=== PATIENT | female | born 1980 | race Two or more races ===

== ENCOUNTER 2016-10-22 09:05 | Emergency (ER) | payer MEDICAID ==
[2016-10-22 09:09] VITALS: BP 124/76; RESP 20; TEMP 97.7; O2SAT 98
--- NOTE | 2016-10-22 09:13 | EDPHY ---
H & P Stated Complaint: Alergic reaction since yesterday;hives and facial swelling - Personal History LMP (Females 10-55): Hysterectomy Current Tetanus Diphtheria and Acellular Pertussis (TDAP): Yes - Medical/Surgical History Other PMH: hypothyroid - Social History Smoking Status: Never smoked Constitutional: Initial Vital Signs Temperature (C) 36.5 C 10/22/16 09:05 Heart Rate 88 10/22/16 09:05 Respiratory Rate 20 10/22/16 09:05 Blood Pressure 124/76 H 10/22/16 09:05 O2 Sat (%) 98 10/22/16 09:05 O2 Delivery Mode Room Air Allergies/Adverse Reactions: diphenhydramine HCl [From Benadryl] Allergy (Intermediate, Verified 10/22/16 09: 05) palpitations Home Medications: Medication Instructions Recorded EPINEPHRINE [EPIPEN] 0.3 mg IM ONCE #2 syr 10/22/16 Famotidine [Pepcid 20 MG (OTC)] 20 mg PO DAILY #10 tab 10/22/16 Thyroid [Ambrose Thyroid 60 MG (*)] 60 mg PO DAILY10 10/22/16 predniSONE 40 mg PO DAILY #10 tab 10/22/16 Medical Decision Making ED Course/Re-evaluation: CHIEF COMPLAINT: Rash HISTORY OF PRESENT ILLNESS: This is a 36 y/o female with no known allergies complaining of a pruritic rash onset this morning upon waiting. She started Fluconazole 5 days ago for a yeast infection that appeared after treatment for an upper respiratory infection 2 weeks ago. She has never had a reaction to Fluconazole previously. This morning she woke with large urticaria to her forehead, neck, and elbows. She has associated itching sensation around her lips , but denies airway swelling or difficulty breathing. Her symptoms have improved since arrival in the ED. She gets palpitations with Benadryl, so she has not taken anything for her symptoms. REVIEW OF SYSTEMS: A 10 point review of systems was performed and is negative with the exception of the elements mentioned in the history of present illness. PHYSICAL EXAM: HR, BP, O2 Sat, RR. Temp noted General Appearance: Alert, well hydrated, appropriate, and non-toxic appearing. Head: Atraumatic without scalp tenderness or obvious injury Eyes: Pupils equal, round, reactive to light and accommodation, EOMI, no trauma , no injection. Ears: Clear bilaterally, no perforation, normal landmarks Nose: Atraumatic, no rhinorrhea, clear. Throat: There is no erythema or exudates, no lesions, normal tonsils, mucus membranes moist. No angioedema, uvula midline, no stridor. Neck: Supple, nontender, no lymphadenopathy. Respiratory: No retractions, no distress, no wheezes, and no accessory muscle use. Lungs are clear to auscultation bilaterally. Cardiovascular: Regular rate and rhythm, no murmurs, rubs, or gallops. Good capillary refill all extremities. Gastrointestinal: Abdomen is soft, nontender, non-distended, no masses, no rebound, no guarding, no peritoneal signs. Musculoskeletal: Normal active ROM of all extremities, atraumatic. Neurological: Alert, appropriate, and interactive. Nonfocal neuro exam. Skin: good turgor, no nodules on palpation. Pronounced urticaria to forehead, neck, and elbows. Past medical history: Denies Past surgical history: Hysterectomy Family history: noncontributory Social history: Lives in [place] DIFFERENTIAL DIAGNOSIS: The differential diagnosis included but was not limited to angioedema, anaphylaxis, anaphylactoid reaction, urticarial reaction , and other infectious causes for skin rash. MEDICAL DECISION MAKING: This is a healthy 36 y/o female who presents with pronounced urticaria to her forehead, neck, and elbows that appeared this morning. She is on her 5th day of fluconazole and has no history of prior reactions to this drug. Her breath sounds are clear and she has no evidence of respiratory distress on exam. It's possible this is a delayed reaction to her fluconazole, but it could be a reaction to a different antigen as well. Her treatment is somewhat complicated due to a history of palpitations with Benadryl use and her ongoing yeast infection. Due to this, we will treat her symptoms with 10mg PO dexamethasone instead of prednisone and 40mg PO Pepcid instead of Benadryl. She will be discharged with scripts for Pepcid, an EpiPen, and prednisone with specific instructions to only use the prednisone if her rash recurs. I gave strict return precautions and referred her to an rodding anode worker for follow up. She is comfortable with this plan. - Data Points Medications Given: Discontinued Medications Dexamethasone (Decadron Injection) 10 mg PO EDNOW ONE Stop: 10/22/16 09:22 Last Admin: 10/22/16 09:33 Dose: 10 mg Famotidine (Pepcid) 40 mg PO EDNOW ONE Stop: 10/22/16 09:22 Last Admin: 10/22/16 09:33 Dose: 40 mg Departure - Departure Disposition: Home, Routine, Self-Care Clinical Impression: Allergic reaction Qualifiers: Encounter type: initial encounter Qualified Code(s): T78.40XA - Allergy, unspecified, initial encounter Condition: Good Instructions: General Allergic Reaction (ED) Additional Instructions: 1. Take Pepcid as prescribed for the next 10 days. 2. Use Prednisone only if reaction recurs as this has potential to exacerbate your yeast infection. 3. Use EpiPen in case of airway swelling of difficulty breathing. 4. Follow up with Dr. Vargas, building maintenance superintendent, on Tuesday. 5. Return to the ED for difficulty breathing or worsening of condition. Referrals: Patient,NotPresent [Primary Care Provider] - As per Instructions Alexandrea Vargas MD [Medical Doctor] - As per Instructions Prescriptions: EPINEPHRINE [EPIPEN] 0.3 mg IM ONCE #2 syr Famotidine [Pepcid 20 MG (OTC)] 20 mg PO DAILY #10 tab predniSONE 40 mg PO DAILY #10 tab Report Scribed for: Mj Combs Report Scribed by: Noemi Raza Date of Report: 10/22/16 Time of Report: 09:29
[2016-10-22] MEDS ORDERED: DEXAMETHASONE 10 MG/ML VIAL PO ONE (09:21)
[2016-10-22] MEDS ORDERED: FAMOTIDINE 20 MG TAB PO ONE (09:21)
[2016-10-22] MEDS ORDERED: DEXAMETHASONE 4 MG TAB ONE (09:30)
[2016-10-22 09:40] VITALS: PULSE 94
== END 2016-10-22 09:38 | disposition home or self-care (01) ==
DX: T78.40XA Allergy, unspecified, initial encounter (principal)